=== PATIENT | male | born 1980 | race Hispanic/Latino ===

== ENCOUNTER 2022-03-26 15:47 | Emergency (ER) | payer OTHER ==
[2022-03-26] VITALS (12 sets, daily range): BP systolic 120–146; BP diastolic 74–775
[~2022-03-26] VITALS: Ht 177.8 cm; Wt 81.0 kg
[~2022-03-26 15:47] MED LIST: DENIES CURRENT MEDS; ULTRAM50 M1 PO
== END 2022-03-26 19:12 | disposition home or self-care (01) | DRG 556 ==
LOC: ED 15:47
DX: M25.512 Pain in left shoulder (principal); V43.52XA Car driver injured in collision with other type car in traffic accident, initial encounter